=== PATIENT | female | born 1960 | race African-American/Black ===

== ENCOUNTER 2016-11-01 16:13 | Emergency (ER) | payer MEDICAID ==
[~2016-11-01] VITALS: Ht 160 cm; Wt 60.8 kg
[2016-11-01] MEDS ORDERED: TdaP Vaccine 0.5ml Syr IM ONE (17:15)
[2016-11-01] MEDS ORDERED: traMADol 50mg tab ORAL ONE (17:30)
[2016-11-01] MEDS ORDERED: AUGMENTIN 500-1 EACH ORAL (18:56)
[2016-11-01 19:10] VITALS: BP 133/75
--- NOTE | 2016-11-02 16:16 | Emergency Room Report ---
History of Present Illness General Chief Complaint: Animal Bite Source: Patient Present Illness HPI The patient is a 56-year-old female presenting with dog bite to the right arm. The patient states that she was at her friend's house when the domesticated dog bit the right forearm. Patient now presents with a 5/10 dull ache to the arm. Patient noted bleeding. The patient denies radiating pain and denies numbness or tingling. The patient states last tetanus shot was more than 10 years prior. Allergies: Coded Allergies: No Known Allergies (Unverified , 11/01/16) Patient History Past Medical History: see triage record Pertinent Family History: none Now: No Reviewed Nursing Documentation: PMH: Agreed, PSxH: Agreed Nursing Documentation-PMH Hx Hypertension: Yes Hx Diabetes: Yes Review of Systems All Other Systems: negative except mentioned in HPI Physical Exam Vital Signs Date Time Temp Pulse Resp B/P Pulse Ox O2 Delivery O2 Flow Rate FiO2 11/01/16 16:50 97.9 88 15 128/83 98 Room Air Sp02 EP Interpretation: reviewed, normal General Appearance: no apparent distress, alert, GCS 15, non-toxic Head: normocephalic, atraumatic Eyes: bilateral eye PERRL, bilateral eye normal inspection ENT: hearing grossly normal, normal pharynx, no angioedema, normal voice Musculoskeletal: normal range of motion, tender - R forearm Neurologic: alert, oriented x3, responsive, motor strength/tone normal, sensory intact, speech normal Psychiatric: judgement/insight normal, memory normal, mood/affect normal, no suicidal/homicidal ideation Skin: no rash, warm/dry, well hydrated, laceration - 1cm linear Procedures Laceration/Wound Repair Laceration/Wound Repair : Consent: Verbal Wound Location: upper extremity - R forearm Wound's Depth, Shape: superficial Wound Length (cm): 1 Wound Explored: clean Irrigated w/ Saline (ccs): 200 Betadine Prep?: Yes Volume Anesthetic (ccs): 0 Wound Debrided: minimal Wound Repaired With: Dermabond Layer Closure?: No Sterile Dressing Applied?: Yes Splint Applied?: No Sling Applied?: No Patient Tolerated: Well Complications: None Medical Decision Making PA Attestation Dr. Doe is my supervising physician. Patient management was discussed with my supervising physician Diagnostic Impression: Primary Impression: Bite by animal ER Course The patient is a 56-year-old female presenting with dog bite to the right arm. Ddx considered include but not limited to fracture, tendon/ligament injury, avulsion, nerve damage PE: Vitals WNL. NAD R forearm: multiple abrasions. 1cm linear laceration. Minimal bleeding. Full ROM of wrist and elbow. SILT. The wounds were cleaned with normal saline and Betadine. X-ray of the forearm is unremarkable. The 1 cm linear laceration was repaired with Dermabond. No complications. Well approximated. The wound was dressed with Xeroform and sterile dressing. Pt will be DC'ed home with prescription for augmentin. ER precautions given Other X-Ray Diagnostic Results Other X-Ray Diagnostic Results : X-Ray Ordered: R forearm Date: Nov 01, 2016 EP Interpretation: Yes Findings: no fractures, no dislocation, no soft tissue swelling Number of Views: 2 PA Scribe Text I am acting as scribe for my supervising physician. My supervising physician's interpretation of the R forearm xrays are there are no fractures, dislocations or soft tissue swelling. Last Vital Signs Date Time Temp Pulse Resp B/P Pulse Ox O2 Delivery O2 Flow Rate FiO2 11/01/16 19:10 80 16 133/75 96 Room Air 11/01/16 19:10 98.2 Status: improved Disposition: HOME, SELF-CARE Condition: Improved Scripts Amoxicillin/Potassium Clav 500-125 Tablet* (AUGMENTIN 500-125 TABLET*) 1 Each Tablet 1 TAB ORAL THREE TIMES A DAY, #15 TAB Prov: JUSTYN VALE 11/01/16 Referrals: [facility],REFERRING (PCP) Patient Instructions: Animal Bite Additional Instructions: I discussed my findings with the patient. All questions and concerns have been answered. Treatment and medication compliance have been addressed. I advised the patient that they need to follow up with PMD in 3-5 days. Return to ED if symptoms worsen, new symptoms arise, or if needed for any reason. Patient verbalized understanding of discharge instructions. JUSTYN VALE Nov 02, 2016 16:16
--- NOTE | 2016-11-03 08:17 | Diagnostic Imaging Report ---
Indications: PAIN Technique: Two views of the right forearm Comparison: None Findings: No acute fractures or dislocations. No radiopaque foreign body. Normal mineralization. Impression: Negative
== END 2016-11-01 19:30 | disposition home or self-care (01) ==
LOC: EMR 19:18
DX: S51.811A Laceration without foreign body of right forearm, initial encounter (principal); W54.0XXA Bitten by dog, initial encounter; Y92.9 Unspecified place or not applicable; Z23 Encounter for immunization; E11.9 Type 2 diabetes mellitus without complications; I10 Essential (primary) hypertension
CPT/HCPCS: 90471; 90715; 99283